=== PATIENT | male | born 1955 | race Caucasian/White ===

== ENCOUNTER 2017-09-22 01:05 | Emergency (ER) | payer MEDICAID ==
[~2017-09-22] VITALS: Ht 165.1 cm; Wt 68.2 kg
[2017-09-22] MEDS ORDERED: LANS15CA17 PO (01:19)
[2017-09-22] MEDS ORDERED: NAPR-58 PO (01:19)
[2017-09-22] MEDS ORDERED: KETOROLAC TROMETHAMINE 30 MG/ML VIAL IM ONE (03:30)
[2017-09-22 04:29] VITALS: BP 136/85
== END 2017-09-22 04:43 | disposition home or self-care (01) ==
LOC: EMS 01:06
DX: G44.209 Tension-type headache, unspecified, not intractable (principal); K21.9 Gastro-esophageal reflux disease without esophagitis; F17.210 Nicotine dependence, cigarettes, uncomplicated
CPT/HCPCS: 96372; 99283; J1885